=== PATIENT | male | born 2000 | race Caucasian/White ===

== ENCOUNTER 2019-10-04 10:43 | Emergency (ER) | payer OTHER, SELFPAY ==
[2019-10-04 10:45] VITALS: BP 134/99; PULSE 112; RESP 16; TEMP 36.4; O2SAT 100; BMI 17.4
[2019-10-04 11:00] VITALS: RESP 16
--- NOTE | 2019-10-04 12:03 | ED.VISSUMM ---
- ER Visit Summary Date of Service: 10/04/19 Chief Complaint: [] Bilateral lower extremity weakness History of Present Illness: The patient is a 19 M with past medical history of anxiety and depression presents with lower extremity weakness. States is been present for approximately 10 days. States it is most pronounced in the morning. States that he feels he is weak when he is walking. Feels better now and symptoms have resolved since this morning. Does not describe it as a pain, numbness, or tingling. Cannot describe the sensation. Patient did recently stop his Zoloft because he felt like it was not working. Denies any injury or trauma. Denies any change in his bowel or bladder habits. No recent illness including diarrhea or vomiting. [] Physical Examination: [] Patient appears well nontoxic. Vital signs within normal limits. Head normocephalic without signs of trauma. Eyes equal commotion intact. PERRLA. Mouth mucosa appears well hydrated. Neck trachea midline. Supple. Lungs clear to auscultation bilateral without wheezing. Heart S1-S2 appreciated no murmurs. Abdomen soft nontender. Musculoskeletal was 5-5 muscle strength in the upper lower extremity. Neuro alert and oriented x3. Cranial nerves II through XII intact. No dysmetria. Ambulates without ataxia. Clear. Psych mood and affect normal. Test Results: [] Emergency Department Course and Treatment: [] Appears well. Vital signs within normal limits. No focal neurologic deficit. Extensive discussion with the patient as well as his father. I do not feel patient warrants any lab work or imaging at this time. He will follow-up with his primary care provider. Treatment Plan: [] Disposition: [] Follow-up with primary care physician. Impression: [] 1. Bilateral lower extremity weakness This note was generated with [employer] software. It may contain incorrect words, spelling, and punctuation that were not noted in review of the chart prior to signing ED Disposition - Plan for ED Patient: Diagnosis: Feared complaint without diagnosis Referrals: Alexis Garcia MD [Primary Care Provider] -
== END 2019-10-04 12:16 | disposition home or self-care (01) ==
PROVIDERS: Emergency Provider Emergency Medicine; Family Provider Family Medicine; PCP Family Medicine
DX: R53.1 Weakness (principal)
CPT/HCPCS: 99281; 99282